=== PATIENT | male | born 1985 | race Two or more races ===

== ENCOUNTER 2023-11-07 19:14 | Emergency (ER) | payer OTHER ==
[2023-11-07 19:50] VITALS: BP 141/84; O2SAT 96
[2023-11-07] MEDS: TETANUS/DIPHTHERIA/PERTUSSIS 0.5 ML SYRINGE IM ONE ×2 (21:14→21:37)
--- NOTE | 2023-11-07 21:21 | ED Physician Documentation ---
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 Unknown last tetanus shot. Worse with palpation and movement. Not on blood thinners. No numbness or tingling. PD PAST MEDICAL HISTORY - Past Medical History Past Medical History: No - Past Surgical History Past Surgical History: No - Present Medications Home Medications: Ambulatory Orders Medication Instructions Recorded Confirmed No Known Home Medications 11/07/23 11/07/23 - Allergies Allergies/Adverse Reactions: Allergies Allergy/AdvReac Type Severity Reaction Status Date / Time morphine AdvReac Hives Verified 11/07/23 19:29 - Social History Does the pt smoke?: No Smoking Status: Never smoker Does the pt drink ETOH?: No Does the pt have substance abuse?: No - Immunizations Immunizations are current?: No - POLST Patient has POLST: No PD ED PE NORMAL - Vitals Vital signs reviewed: Yes - General General: Alert and oriented X 3 - HEENT HEENT: Moist mucous membranes - Extremities Extremities: Other (Distal tip amputation, proximately 2 to 3 mm deep, approximately 1 cm in diameter. Left thumb. He did slice off a small amount of the nail as well. Neurovascular intact. No bone exposure.) - Neuro Neuro: Alert and oriented X 3 Results - Vitals Vitals: Vital Signs - 24 hr 11/07/23 19:30 Temperature 36.5 C Heart Rate 83 Respiratory 18 Rate Blood Pressure 141/84 H O2 Saturation 96 Oxygen O2 Source Room air PD Medical Decision Making - ED course Complexity details: considered differential, d/w patient ED course: A tourniquet was applied to the left thumb to stop the bleeding. The wound was cleansed and irrigated. Dermabond was then applied to stop the bleeding. The tourniquet was then removed with excellent hemostasis. A gauze dressing was then applied. Tdap given. Warnings of infection and instructions on wound care given at bedside. Also counseled on how to minimize scarring. Patient counseled regarding signs and symptoms for which I believe and urgent re-evaluation would be necessary. Patient with good understanding of and agreement to plan and is comfortable going home at this time This document was made in part using voice recognition software. While efforts are made to proofread this document, sound alike and grammatical errors may oc cur. Departure - Departure Disposition: 01 Home, Self Care Clinical Impression: Amputation of tip of finger Qualifiers: Encounter type: initial encounter Qualified Code(s): S68.119A - Complete traumatic metacarpophalangeal amputation of unspecified finger, initial encounter Condition: Good Instructions: ED Laceration Amputation Finger Tip Open Tx Follow-Up: your,doctor in 1 week [Other] Comments: The glue will dissolve on it's own in a few days. Do not apply ointment as this may dissolve the glue. Your were given a tetanus shot today. Return if you worsen. Follow up with your doctor in 1 week for wound check. Keep the wound covered at work. Forms: PCP List Discharge Date/Time: 11/07/23 21:49
== END 2023-11-07 21:49 | disposition home or self-care (01) ==
LOC: ED 19:14
DX: S68.022A Partial traumatic metacarpophalangeal amputation of left thumb, initial encounter (principal); W26.0XXA Contact with knife, initial encounter; Y93.G1 Activity, food preparation and clean up; Y92.511 Restaurant or cafe as the place of occurrence of the external cause; Y99.0 Civilian activity done for income or pay; Z23 Encounter for immunization
CPT/HCPCS: 1040M; 12001; 90471; 90715; 99283